=== PATIENT | male | born 1980 | race Caucasian/White ===

== ENCOUNTER 2021-12-21 10:37 | Outpatient (CLI) | payer BC, SELFPAY ==
--- NOTE | 2022-01-05 12:11 | W.PM.SLEEP ---
Sleep Study Details Details Interpreting Provider: Gary Baum MD Date of Sleep Study: 12/21/21 Sleep Study Details: STUDY TYPE:? Home sleep study ? BMI:? 31.9 ORDERING PROVIDER:? Hunter INDICATION:? concerns about sleep apnea ? SLEEP SUMMARY:? 452 minutes RESPIRATORY SUMMARY:? AHI 8.9, minimal positional variation. 17.2% of study snoring present Low oxygen 87% 0.4% of the study oxygenation less than 90% CARDIAC:? 54-105, mean 74.4 IMPRESSION:? Mild obstructive sleep apnea RECOMMENDATION: Treatment options include AutoSet CPAP, dental appliance, weight loss and/or airway expansion surgery.
== END 2021-12-21 10:38 | disposition home or self-care (01) ==
LOC: SLEEP 03-25 16:44
PROVIDERS: Visit Provider Family Medicine
DX: G47.33 Obstructive sleep apnea (adult) (pediatric) (principal)
CPT/HCPCS: 95806

== ENCOUNTER 2023-03-25 09:26 | Outpatient (CLI) | payer BC, SELFPAY | END 2023-03-25 09:27 | disposition home or self-care (01) | PROVIDERS: Visit Provider Family Medicine | DX: I10 Essential (primary) hypertension (principal) | CPT/HCPCS: 80048; 80061 ==

== ENCOUNTER 2023-05-17 07:45 | Outpatient (CLI) | payer BC, SELFPAY ==
--- NOTE | 2023-05-17 08:00 | CRLHL7_ITS ---
For Patients: As a result of the Century Cures Act, medical imaging exams and procedure reports are released immediately into your electronic medical record. You may view this report before your referring provider. If you have questions, please contact your health care provider. INDICATION: Radiculopathy. TECHNIQUE : Lumbar spine MRI without contrast. The following sequences were obtained: Sagittal T1, T2 weighted and STIR sequences. Axial T1 and T2 weighted sequences. COMPARISON: Lumbar spine radiographs from 05/09/2023. FINDINGS : Five lumbar type vertebral bodies, with the last fully formed disc space designated as L5-S1. Normal lumbar lordotic curve. No recent compression fracture or marrow replacing process. Lower cord/conus signal is normal. The conus terminates at a normal location. No intradural lesion. No extraspinal soft tissue abnormalities. Discs/Endplates: L3-4 and L4-5 disc dehydration. Remaining discs exhibit normal height and signal. Findings at individual levels as follows: T11-12: No spinal canal or neural foraminal stenosis. T12-L1: No spinal canal or neural foraminal stenosis. L1-2: No spinal canal or neural foraminal stenosis. L2-3: No spinal canal or neural foraminal stenosis. L3-4: Small left foraminal disc protrusion which minimally contacts the left L3 nerve root. No spinal canal or neural foraminal stenosis. L4-5: Shallow right central/subarticular protrusion with annular fissure which contacts/minimally impinges the traversing L5 nerve root. No spinal canal or neural foraminal stenosis. L5-S1: No spinal canal or neural foraminal stenosis. Imaged SI joints: Within normal limits. Imaged sacrum: Within normal limits. IMPRESSION: 1. At L4-5, a shallow right central/subarticular protrusion with annular fissure which contacts/minimally impinges the traversing L5 nerve root. 2. At L3-4, a small left foraminal protrusion which minimally contacts the left L3 nerve root. 3. No spinal canal/neural foraminal stenosis or neural impingement elsewhere. Dictated by Blaise Guzman MD @ 05/17/2023 12:20:20 PM (Electronically Signed)
== END 2023-05-17 07:46 | disposition home or self-care (01) ==
LOC: MRI 07:46
PROVIDERS: PCP Family Medicine; Visit Provider Family Medicine
DX: M54.10 Radiculopathy, site unspecified (principal); M51.26 Other intervertebral disc displacement, lumbar region; M54.50 Low back pain, unspecified; G89.29 Other chronic pain
CPT/HCPCS: 72148

== ENCOUNTER 2023-07-29 09:08 | Outpatient (CLI) | payer BC, SELFPAY ==
--- NOTE | 2023-07-29 10:17 | W.ANESCHARGE ---
Anesthesia Charges Start Date/Time Anesthesia Start Date: 07/29/23 Anesthesia Start Time: 09:50 Stop Date/Time Anesthesia Stop Date: 07/29/23 Anesthesia Stop Time: 10:15
--- NOTE | 2023-07-29 11:06 | W.ANESCHARGE ---
Anesthesia Charges Start Date/Time Anesthesia Start Date: 07/29/23 Anesthesia Start Time: 09:50 Stop Date/Time Anesthesia Stop Date: 07/29/23 Anesthesia Stop Time: 10:15
== END 2023-07-29 09:09 | disposition home or self-care (01) ==
LOC: OP CLINIC 09:08
PROVIDERS: PCP Family Medicine; Visit Provider Internal Medicine
DX: Z12.11 Encounter for screening for malignant neoplasm of colon (principal); K57.30 Diverticulosis of large intestine without perforation or abscess without bleeding
CPT/HCPCS: 00811; 00812; 45378; J2704

== ENCOUNTER 2024-04-04 11:21 | Outpatient (CLI) | payer BC, SELFPAY | END 2024-04-04 11:22 | disposition home or self-care (01) | PROVIDERS: PCP Family Medicine; Visit Provider Family Medicine | DX: I10 Essential (primary) hypertension (principal); Z13.220 Encounter for screening for lipoid disorders | CPT/HCPCS: 80048; 80061 ==

== ENCOUNTER 2024-10-02 10:33 | Outpatient (CLI) | payer BC, SELFPAY | END 2024-10-02 10:34 | disposition home or self-care (01) | PROVIDERS: PCP Family Medicine; Visit Provider Family Medicine | DX: M10.9 Gout, unspecified (principal) | CPT/HCPCS: 80048; 84550 ==

== ENCOUNTER 2024-11-29 15:39 | Outpatient (CLI) | payer BC, SELFPAY ==
--- OUTSIDE RECORDS SUMMARY | 2012-06-02 06:00 | XMS_ITS | Continuity of Care Document ---
Author Organization [facility] Address [address] [address] [place] [address] Phone Care Team Providers Care Lehr Attendant Name Role Phone Unavailable Unavailable Unavailable Allergies, Adverse Reactions, Alerts Substance Reaction Status Criticality No Known allergies Medications Medication Instructions Dosage Effective Dates (start - stop) Status Comments Protonix 40 mg Tab take 1 Tablet by doreen th route every day 1 Tablet - Active Procedures Procedure Date Ugi Endo; W/bx 1/mx Level Iv-surg Path Gross/micro 12 Offic/outpt E&m Estab Low-mod 1 [id number] Ugi Endo; W/bx 1/mx Level Iv-surg Path Gross/micro 10 Immunocytochemistry, Each Antibody Ugi Endo; W/bx 1/mx Level Iv-surg Path Gross/micro 09 Advance Directives Directive Yes / No Effective Date File Name Resuscitation Not Answered N/A N/A Life Support Not Answered N/A N/A Intubation Not Answered N/A N/A Antibiotics Not Answered N/A N/A IV Fluid Support Not Answered N/A N/A Tube Feed Not Answered N/A N/A Other Directive N/A N/A WARNING:The information contained in this section is historical and is provided for information only and does not constitute a legal document or any assurance that the information is still accurate. Please verify the information with the kumar of the legal document before using it for clinical purposes. Encounters Encounter Description Practice Location Reason(s) For Visit Diagnoses Date Provider Providers Copied on Encounter [facility], [address] [address], [place], [id number], [place] tel:[phone] [facility] Reflux EsophagitisPol yp-intes/rect/ stom-unc BehGastroduode nal Dis NosReflux EsophagitisGas troduodenal Dis Nos 2 No Information Referring Provider: Referral Self, USE FOR SELF REFERRALS. [facility] [address] [place], [address] [address], [place], [id number], [place] tel:[phone] [facility] No Information 1 No Information Offic/outpt E&m Estab Low-mod [facility] [address] [place], [address] [address], [place], [id number], [place] tel:[phone] [facility] German's (chief complaint) Med refill (chief complaint) Gastroesophage al Reflux 1 No Information [facility] [address] [place], [address] [address], [place], [id number], [place] tel:[phone] [facility] German's EsophagusBarre tt's EsophagusGastr itis W/o BleedReflux Esophagitis [address] Welsh. [address] [place] [address], [id number], [place]. tel:[phone] [facility] [address] [place], [address] [address], [place], [id number], [place] tel:[phone] [facility] German's EsophagusBarre tt's Esophagus [address]. [address] [place] [address], [id number], [place]. tel:[phone] Family History Family Member Type Diagnosis Age At Onset First degree family history Problem (finding) No history of Crohn's First degree family history Problem (finding) No history of Ulcerative Colitis First degree family history Problem (finding) German's Esophagus First degree family history Problem (finding) GERD First degree family history Problem (finding) No history of Cancer, colon First degree family history Problem (finding) No Family history of No history of Colon Polyps Payers Payer name Insurance type Covered libertarian ID Harlanjeremiah gore(s) [facility] [id number] Social History Type Description Quantity Date Captured Comments Alcohol Use Details Unknown Caffeine Use Details Unknown Tobacco Use Status No Information Smoking Status No Information Sex Male Chief Complaint And Reason For Visit No Information Reason For Referral Reason For Referral No Information History Of Present Illness Encounter Date Complaint History Of Prese nt Illness No Information Functional Status Date Functional Assessmen t No Information Instructions Date Instruction Additional Infor mation No Information Assessments Type Assessment Date No Information Patient Care Teams Name Effective Dates (start - stop) Status Members No Information
--- NOTE | 2024-11-29 16:00 | CRLHL7_ITS ---
For Patients: As a result of the Century Cures Act, medical imaging exams and procedure reports are released immediately into your electronic medical record. You may view this report before your referring provider. If you have questions, please contact your health care provider. INDICATION: Left thigh pain. TECHNIQUE: Ultrasound venous duplex lower left extremity. Compression venous exam was performed using allison-scale, color Doppler, and spectral Doppler analysis. COMPARISON: None. FINDINGS: Sonographic imaging demonstrates the left common femoral, deep femoral, superficial femoral, popliteal, posterior tibial and greater saphenous and the contralateral right common femoral veins to be fully compressible with normal color Doppler blood flow. Small fluid collection popliteal fossa measures 3.4 x 2.5 x 1.1 centimeter. IMPRESSION: No deep venous thrombosis. 3.4 centimeter popliteal cyst. Dictated by Nawaf Almanzar MD @ 11/29/2024 4:38:19 PM (Electronically Signed)
--- OUTSIDE RECORDS SUMMARY | 2024-11-30 01:03 | XMS_ITS | Clinical Summary ---
Author Organization [facility] Address [address] [place] [id number] Care Team Providers Care Fire Lookout Name Role Phone Luis Cardenas MD Primary Care Provider Allergies No known active allergies Medications famotidine (PEPCID) 20 mg tablet Take 20 mg by mouth 2 times daily. Active meloxicam (MOBIC) 7.5 mg tablet Take 1 tablet by mouth once daily. If needed. Active clindamycin 1% (CLEOCIN-T) 1 % lotion APPLY TO AFFECTED AREA EVERY DAY 07/24/2020 Active celecoxib (CELEBREX) 200 mg capsule TAKE ONE CAPSULE BY MOUTH ONE TIME DAILY* 06/07/2023 Active lisinopril-hydr ochlorothiazide 20-12.5 mg tablet (PRINZIDE) TAKE ONE TABLET BY MOUTH ONE TIME DAILY* 05/27/2023 Active celecoxib (CELEBREX) 200 mg capsuleIndicati ons:Lumbar disc herniation Take 1 Capsule (200 mg) by mouth 2 times daily if needed for Pain. FOR PAIN 60 Capsule 1 11/04/2023 Active Active Problems No known active problems Social History Tobacco Use Types Packs/Day Years Used Date Smoking Tobacco: Never Smokeless Tobacco: Never Tobacco Cessation:Counseling Given: Yes Social Connections Answer Date Recorded Frequency of Communication with Friends and Fami ly Not on file 06/22/2023 Financial Resource Strain Answer Date R ecorded Difficulty of Paying Living Expenses Not on file 06/13/2021 Difficulty of Paying Living Expenses Not on file 06/13/2021 Sex and Gender Information Value Date Recorded Sex Assigned at Not on file Legal Sex Male 7:14 PM CDT Gender Identity Not on file Sexual Orientation Not on file Obstetrics History Last Filed Vital Signs Vital Sign Reading Time Taken Comments Blood Pressure 118/81 06/22/2023 9:39 AM TREAD TUBER MACHINE OPERATOR Pulse 63 06/22/2023 9:39 AM TREAD TUBER MACHINE OPERATOR Temperature 36.6 C (97.9 F) 06/22/2023 9:39 AM TREAD TUBER MACHINE OPERATOR Respiratory Rate - - Oxygen Saturation 97% 06/22/2023 9:39 AM TREAD TUBER MACHINE OPERATOR Inhaled Oxygen Concentration - - Weight 111 kg (244 lb 12.8 oz) 06/22/2023 9:39 A M TREAD TUBER MACHINE OPERATOR shoes on Height 182.9 cm (6') 05/22/2020 10:34 AM TREAD TUBER MACHINE OPERATOR Body Mass Index 33.2 05/22/2020 10:34 AM TREAD TUBER MACHINE OPERATOR Plan of Treatment Health Maintenance Due Date Last Done Comments Tdap 1989 Depression screening for age 12+ 1990 HIV for age 15-65 1993 Hepatitis C screening for age 18-79 1996 Hepatitis B series for 19+ (1 of 3 - 19+ 3-dose series) 1997 Tetanus booster 1998 BMI (ht and wt on same day) for age 18+ 05/22/2021 05/22/2020 Colonoscopy through age 75 2023 Lipids for age 45-75 2023 COVID-19 vaccine series ( season) 2024 03/15/2023, 04/19/2021, 09/12/2020, Additional history exists Influenza Vaccine (Season Ended) 2025 Pneumococcal series for age 6-49 Aged Out No longer eligible based on patient's age to complete [place] [address] [facility] Care Teams Fire Lookout Relationship Specialty Start Date End Date Luis Cardenas MD [address] [place] [id number] PCP - General Internal Medicine 05/22/20
== END 2024-11-29 15:40 | disposition home or self-care (01) ==
LOC: US 15:39
PROVIDERS: PCP Family Medicine; Visit Provider Family Medicine
DX: M79.652 Pain in left thigh (principal); M71.22 Synovial cyst of popliteal space [Baker], left knee
CPT/HCPCS: 93971

== ENCOUNTER 2025-03-13 09:45 | Outpatient (CLI) | payer BC, SELFPAY | END 2025-03-13 09:46 | disposition home or self-care (01) | LOC: NFLDREF 03-15 14:40 | PROVIDERS: PCP Family Medicine; Referring Provider Family Medicine | DX: R07.81 Pleurodynia (principal) | CPT/HCPCS: 84484 ==